=== PATIENT | female | born 1965 | race Caucasian/White ===

== ENCOUNTER 2017-08-03 13:33 | Day surgery (SDC) | payer BC ==
[~2017-08-03] VITALS: Ht 167.6 cm; Wt 77.2 kg
[~2017-08-03 13:33] MED LIST: PREMARIN 0.60.625 M1 PO; PROTONIX 40MG T40 MG PO
[2017-08-03] MEDS ORDERED: DEXILANT30 MG PO (14:02)
[2017-08-03] MEDS ORDERED: NORVASC2.5 MG PO (14:02)
[2017-08-03] MEDS ORDERED: TOPAMAX50 MG PO (14:02)
[2017-08-03] MEDS ORDERED: FLONASEALLERGY NS (14:03)
[2017-08-03] MEDS ORDERED: EXCEDRIN1 TAB PO (14:03)
[2017-08-03] MEDS ORDERED: ZYRTEC-D 5 MG-11 TER PO (14:04)
[2017-08-03] MEDS ORDERED: XANAX 0.5MG0.5 MG PO (14:05)
[2017-08-03] MEDS ORDERED: ASPIRIN 32325 MG/TAB PO (14:07)
[2017-08-03 14:08] VITALS: BP 109/56; PULSE 98; TEMP 99.1
[2017-08-03 15:25] VITALS: BP 92/67; PULSE 88; TEMP 98
[2017-08-03 15:40] VITALS: BP 83/62; PULSE 86
[2017-08-03 15:55] VITALS: BP 85/58; PULSE 84
[2017-08-03 16:10] VITALS: BP 92/59; PULSE 78
[2017-08-03 16:54] VITALS: BP 102/63; PULSE 86
== END 2017-08-03 16:35 | disposition home or self-care (01) ==
LOC: SDCO 13:33
DX: K21.9 Gastro-esophageal reflux disease without esophagitis (principal); R11.2 Nausea with vomiting, unspecified; K30 Functional dyspepsia; K44.9 Diaphragmatic hernia without obstruction or gangrene; K29.30 Chronic superficial gastritis without bleeding; R13.12 Dysphagia, oropharyngeal phase; R19.7 Diarrhea, unspecified; R19.5 Other fecal abnormalities; K64.0 First degree hemorrhoids; R10.9 Unspecified abdominal pain; Z79.82 Long term (current) use of aspirin; I10 Essential (primary) hypertension; F17.210 Nicotine dependence, cigarettes, uncomplicated; R13.10 Dysphagia, unspecified; Z86.73 Personal history of transient ischemic attack (TIA), and cerebral infarction without residual deficits
CPT/HCPCS: OP; J2250; J2405; J3010; J7030

== ENCOUNTER → 2017-12-17 | Outpatient (CLI) | payer BC ==
[~2017-12-17] MED LIST changes: +ASPIRIN 32325 MG/TAB PO; +DEXILANT30 MG PO; +EXCEDRIN1 TAB PO; +FLONASEALLERGY NS; +NORVASC2.5 MG PO; +TOPAMAX50 MG PO; +XANAX 0.5MG0.5 MG PO; +ZYRTEC-D 5 MG-11 TER PO
== END ==
LOC: COL.RAD 14:47
DX: R10.9 Unspecified abdominal pain (principal); Z90.49 Acquired absence of other specified parts of digestive tract; Z90.710 Acquired absence of both cervix and uterus
CPT/HCPCS: Q9967

== ENCOUNTER → 2018-07-30 | Outpatient (CLI) | payer BC | LOC: COL.RAD 08:15 | DX: R74.8 Abnormal levels of other serum enzymes (principal); R10.9 Unspecified abdominal pain ==

== ENCOUNTER → 2018-08-13 | Outpatient (CLI) | payer BC | LOC: COL.RAD 08:25 | DX: R10.33 Periumbilical pain (principal); R14.0 Abdominal distension (gaseous); R10.31 Right lower quadrant pain; Z90.49 Acquired absence of other specified parts of digestive tract; Z90.710 Acquired absence of both cervix and uterus | CPT/HCPCS: Q9967 ==

== ENCOUNTER 2019-04-11 10:22 | Outpatient (RCR) | payer OTHER | END 2019-05-13 10:24 | disposition still patient (30) | LOC: WSOH 10:22 | DX: K44.9 Diaphragmatic hernia without obstruction or gangrene (principal); T78.40XA Allergy, unspecified, initial encounter; F32.9 Major depressive disorder, single episode, unspecified; M79.645 Pain in left finger(s); I10 Essential (primary) hypertension; Z90.710 Acquired absence of both cervix and uterus; F17.210 Nicotine dependence, cigarettes, uncomplicated; Z90.49 Acquired absence of other specified parts of digestive tract; Z98.890 Other specified postprocedural states; Y99.0 Civilian activity done for income or pay ==